=== PATIENT | female | born 1930 | race African-American/Black ===

== ENCOUNTER 2019-03-28 17:10 | Inpatient (IN) | payer MEDICARE, OTHER ==
[~2019-03-28] VITALS: Ht 152.4 cm; Wt 60.3 kg
[2019-03-28 18:39] LABS: BASOPHILS % 0.7 % (0.0-2.0); EOSINOPHILS % 1.2 % (0.0-5.0); HEMATOCRIT. 35.6 % (36.0-48.0); HEMOGLOBIN. 11.2 g/dL (12.0-16.0); LYMPHOCYTES % 25.2 % (20.0-50.0); MEAN CORPUSCULAR HEMOGLOBIN 27.7 pg (28.0-32.0); MEAN CORPUSCULAR VOLUME 87.9 fL (81.0-99.0); MEAN PLATELET VOLUME 8.4 fl (7.4-10.4); MONOCYTES % 8.3 % (2.0-8.0); NEUTROPHILS % 64.6 % (40.0-76.0); PLATELET 284 x1000/uL (130-400); RED BLOOD CELL COUNT 4.05 mill/uL (4.2-5.4); RED CELL DISTRIBUTION WIDTH 15.1 % (11.6-14.6)
[2019-03-28 18:44] LABS: CHLORIDE 110 mEq/L (98-107)
[2019-03-28] MEDS ORDERED: CLONIDINE 0.2MG TABLET PO ONE (20:00)
[2019-03-28] MEDS ORDERED: GUAIFENESIN 200MG/10ML SUGAR FREE UDC PO PRN (23:45)
[2019-03-28] MEDS ORDERED: ENOXAPARIN 40MG/0.4ML SYR SUBCUT SCH (23:45)
[2019-03-28] MEDS ORDERED: DIPHENHYDRAMINE 50MG/ML VIAL IV PRN (23:45)
[2019-03-28] MEDS ORDERED: ACETAMINOPHEN 325MG TABLET PO PRN (23:45)
[2019-03-28] MEDS ORDERED: ACETAMINOPHEN 650MG/20.3ML UDC GT PRN (23:45)
[2019-03-28] MEDS ORDERED: ACETAMINOPHEN 650MG SUPP PR PRN (23:45)
[2019-03-28] MEDS ORDERED: MAGNESIUM/ALUMINUM HYDROXIDE/SIMETHICONE 30ML UDC PO PRN (23:45)
[2019-03-28] MEDS ORDERED: DOCUSATE SODIUM 100MG CAPSULE PO PRN (23:45)
[2019-03-28] MEDS ORDERED: CLONIDINE 0.1MG TABLET PO PRN (23:45)
[2019-03-28] MEDS ORDERED: ONDANSETRON HCL 4MG/2ML INJ IV PRN (23:45)
[2019-03-29 08:00] VITALS: BP 204/76
[2019-03-29] MEDS: SODIUM CHLORIDE 0.9% INJ 3ML FLUSH IVF SCH ×3 (09:39→21:06)
[2019-03-29] MEDS: ENOXAPARIN 30MG/0.3ML SYR SUBCUT SCH (09:39)
[2019-03-29] MEDS: FUROSEMIDE 40MG/4ML VIAL IV SCH (09:39)
[2019-03-29 12:00] VITALS: BP 133/48
[2019-03-29 16:00] VITALS: BP 150/54
[2019-03-29 16:19] LABS: EOSINOPHILS % 1.9 % (0.0-5.0); HEMATOCRIT. 33.2 % (36.0-48.0); HEMOGLOBIN. 10.6 g/dL (12.0-16.0); LYMPHOCYTES % 33.9 % (20.0-50.0); MEAN CORPUSCULAR HEMOGLOBIN 27.5 pg (28.0-32.0); MEAN CORPUSCULAR VOLUME 85.7 fL (81.0-99.0); MEAN PLATELET VOLUME 8.8 fl (7.4-10.4); MONOCYTES % 7.5 % (2.0-8.0); NEUTROPHILS % 55.7 % (40.0-76.0); PLATELET 275 x1000/uL (130-400); RED BLOOD CELL COUNT 3.87 mill/uL (4.2-5.4); RED CELL DISTRIBUTION WIDTH 15.2 % (11.6-14.6)
[2019-03-29 16:33] LABS: CHLORIDE 107 mEq/L (98-107)
[2019-03-29 16:42] LABS: LDL CHOLESTEROL 104 mg/dL (5-100)
[2019-03-29 16:43] LABS: CREATINE KINASE 118 IU/L (26-192)
[2019-03-29 16:44] LABS: HDL CHOLESTEROL 74 mg/dL (40-59)
[2019-03-29 16:47] LABS: CREATINE KINASE MB FRACTION 6.2 ng/mL (0.5-3.6)
[2019-03-29 16:49] LABS: T4 FREE 1.09 ng/dL (0.76-1.46)
[2019-03-29] MEDS ORDERED: HALOPERIDOL 0.5MG TABLET PO PRN (17:15)
[2019-03-29] MEDS ORDERED: HALOPERIDOL 2MG TABLET PO PRN (17:47)
[2019-03-29 17:48] VITALS: BP 151/75
[2019-03-29 19:58] VITALS: BP 139/59
[2019-03-30] VITALS: BP 162/69
[2019-03-30 04:00] VITALS: BP 145/94
[2019-03-30] MEDS: SODIUM CHLORIDE 0.9% INJ 3ML FLUSH IVF SCH ×3 (06:34→21:06)
[2019-03-30 08:00] VITALS: BP 136/73
[2019-03-30] MEDS ORDERED: NA PHOS,M-B/NA PHOS,DI-BA ENEMA 118ML PR PRN (09:00)
[2019-03-30] MEDS: FUROSEMIDE 40MG/4ML VIAL IV SCH (09:07)
[2019-03-30] MEDS: ENOXAPARIN 30MG/0.3ML SYR SUBCUT SCH (09:08)
[2019-03-30 12:00] VITALS: BP 148/47
[2019-03-30 16:00] VITALS: BP 165/57
[2019-03-30 20:00] VITALS: BP 125/77
[2019-03-31] VITALS: BP 138/58
[2019-03-31 04:00] VITALS: BP 146/49
[2019-03-31] MEDS: SODIUM CHLORIDE 0.9% INJ 3ML FLUSH IVF SCH ×2 (05:03→21:19)
[2019-03-31 07:44] LABS: BASOPHILS % 0.4 % (0.0-2.0); EOSINOPHILS % 1.2 % (0.0-5.0); HEMATOCRIT. 27.6 % (36.0-48.0); HEMOGLOBIN. 9.1 g/dL (12.0-16.0); LYMPHOCYTES % 43.8 % (20.0-50.0); MEAN CORPUSCULAR HEMOGLOBIN 28.8 pg (28.0-32.0); MEAN CORPUSCULAR VOLUME 86.8 fL (81.0-99.0); MEAN PLATELET VOLUME 8.2 fl (7.4-10.4); MONOCYTES % 9.9 % (2.0-8.0); NEUTROPHILS % 44.7 % (40.0-76.0); PLATELET 225 x1000/uL (130-400); RED BLOOD CELL COUNT 3.18 mill/uL (4.2-5.4)
[2019-03-31 07:57] LABS: CHLORIDE 108 mEq/L (98-107)
[2019-03-31] MEDS: FUROSEMIDE 40MG/4ML VIAL IV SCH (08:40)
[2019-03-31] MEDS: ENOXAPARIN 30MG/0.3ML SYR SUBCUT SCH (08:41)
[2019-03-31 08:59] VITALS: BP 132/62
[2019-03-31 12:17] VITALS: BP 135/76
[2019-03-31 16:56] VITALS: BP 140/55
[2019-03-31 20:00] VITALS: BP 144/56
[2019-04-01] VITALS: BP 147/52
[2019-04-01 04:00] VITALS: BP 160/54
[2019-04-01] MEDS: SODIUM CHLORIDE 0.9% INJ 3ML FLUSH IVF SCH (05:19)
[2019-04-01] MEDS ORDERED: ENOXAPARIN 40MG/0.4ML SYR SUBCUT SCH (09:00)
[2019-04-01] MEDS ORDERED: HYDRALAZINE HCL 25MG TABLET PO SCH (14:00)
== END 2019-04-01 17:00 | DRG 291 ==
LOC: ER 17:10 → ENRESERV 03-29 07:14 → 6WST 03-29 08:30
PROVIDERS: ADMIT Family Medicine; ATTEND Family Medicine
DX: I11.0 Hypertensive heart disease with heart failure (principal); I50.31 Acute diastolic (congestive) heart failure; E44.0 Moderate protein-calorie malnutrition; R60.0 Localized edema; R06.02 Shortness of breath; E78.5 Hyperlipidemia, unspecified; G20 Parkinson's disease; F02.80 Dementia in other diseases classified elsewhere, unspecified severity, without behavioral disturbance, psychotic disturbance, mood disturbance, and anxiety; D64.9 Anemia, unspecified; R73.9 Hyperglycemia, unspecified; I16.0 Hypertensive urgency
CPT/HCPCS: 36415; 71045; 80061; 82550; 82553; 82962; 83036; 83880; 84439; 84443; 84484; 85379; 93005; 93306; 93970; 96374; 97110; 97162; 97166; 97530; 99285; J1650; J1940

== ENCOUNTER 2020-02-28 14:07 | Inpatient (IN) | payer MEDICARE, OTHER, MEDICAID ==
[~2020-02-28] VITALS: Ht 167.6 cm; Wt 59.0 kg
[2020-02-28] MEDS ORDERED: SODIUM CHLORIDE 0.9% 1,000 ML IV ONE (14:15)
[2020-02-28 16:09] LABS: HEMATOCRIT. 43.7 % (36.0-48.0); HEMOGLOBIN. 13.9 g/dL (12.0-16.0); MEAN CORPUSCULAR HEMOGLOBIN 27.8 pg (28.0-32.0); MEAN CORPUSCULAR VOLUME 87.6 fL (81.0-99.0); MEAN PLATELET VOLUME 8.2 fl (7.4-10.4); PLATELET 517 x1000/uL (130-400); RED BLOOD CELL COUNT 4.99 mill/uL (4.2-5.4); RED CELL DISTRIBUTION WIDTH 15.4 % (11.6-14.6)
[2020-02-28 16:27] LABS: CHLORIDE 119 mEq/L (98-107)
[2020-02-28 16:28] LABS: PLATELET ESTIMATE INCREASED
[2020-02-28] MEDS ORDERED: ONDANSETRON HCL 4MG/2ML INJ IV ONE (17:00)
[2020-02-28] MEDS ORDERED: CLONIDINE 0.2MG TABLET PO ONE (17:00)
[2020-02-28 17:33] LABS: CLARITY URINE CLOUDY (CLEAR); COLOR URINE YELLOW (YELLOW); KETONES URINE TRACE (NEGATIVE); LEUKOCYTE ESTERASE URINE TRACE (NEGATIVE); NITRITE URINE NEGATIVE (NEGATIVE); OCCULT BLOOD URINE 1+ (NEGATIVE); PROTEIN URINE 1+ (NEGATIVE); SPECIFIC GRAVITY URINE 1.018 (1.005-1.030); UROBILINOGEN URINE 0.2 E.U./dL (0.2-1.0)
[2020-02-28] MEDS ORDERED: LABETALOL 5MG/ML SYR 20 MG/4 ML SYRINGE IV ONE (17:45)
[2020-02-28] MEDS ORDERED: CEFTRIAXONE 1 G PREMIX 50 ML IV ONE (18:15)
[2020-02-28] MEDS ORDERED: GUAIFENESIN 200MG/10ML SUGAR FREE UDC PO PRN (21:30)
[2020-02-28] MEDS ORDERED: CEFTRIAXONE 1 G PREMIX 50 ML IV SCH (21:30)
[2020-02-28] MEDS ORDERED: MAGNESIUM/ALUMINUM HYDROXIDE/SIMETHICONE 30ML UDC PO PRN (21:30)
[2020-02-28] MEDS ORDERED: DEXTROSE 50% WATER 50ML SYRINGE IV PRN (21:45)
[2020-02-28] MEDS ORDERED: CEFEPIME 2,000 MG in DEXT 5% WATER 100 ML IV SCH (22:30)
[2020-02-29] VITALS (7 sets, daily range): BP systolic 108–177; BP diastolic 66–98
[2020-02-29] MEDS ORDERED: ASCO500C18 MT (01:12)
[2020-02-29] MEDS ORDERED: CLOP75TA4 MT (01:12)
[2020-02-29] MEDS ORDERED: MULT-379 MT (01:12)
[2020-02-29] MEDS ORDERED: DOCU-138 MT (01:12)
[2020-02-29] MEDS ORDERED: HYDR-4134 MT (01:12)
[2020-02-29] MEDS: CEFEPIME 1,000 MG in DEXTROSE 5% WATER 50 ML IV SCH (01:25)
[2020-02-29] MEDS: DEXTROSE 5% WATER 1,000 ML IV SCH ×3 (01:26→21:50)
[2020-02-29 05:24] LABS: CHLORIDE 123 mEq/L (98-107)
[2020-02-29 06:00] LABS: BASOPHILS % 0.4 % (0.0-2.0); EOSINOPHILS % 1.3 % (0.0-5.0); HEMOGLOBIN. 11.2 g/dL (12.0-16.0); LYMPHOCYTES % 21.4 % (20.0-50.0); MEAN CORPUSCULAR HEMOGLOBIN 28.3 pg (28.0-32.0); MEAN CORPUSCULAR VOLUME 86.2 fL (81.0-99.0); MEAN PLATELET VOLUME 8.1 fl (7.4-10.4); MONOCYTES % 6.5 % (2.0-8.0); NEUTROPHILS % 70.4 % (40.0-76.0); PLATELET 398 x1000/uL (130-400); RED BLOOD CELL COUNT 3.94 mill/uL (4.2-5.4); RED CELL DISTRIBUTION WIDTH 15.1 % (11.6-14.6)
[2020-02-29] MEDS: INSULIN LISPRO 100 UNITS/ML SUBCUT SCH ×4 (07:54→21:00)
[2020-02-29] MEDS: BLOOD SUGAR DIAGNOSTIC STRIP TEST SCH ×4 (07:54→21:50)
[2020-02-29] MEDS ORDERED: ENOXAPARIN 40MG/0.4ML SYR SUBCUT SCH (09:00)
[2020-02-29] MEDS: ENOXAPARIN 30MG/0.3ML SYR SUBCUT SCH (09:09)
[2020-02-29] MEDS ORDERED: POTASSIUM CHLORIDE INJ 40 MEQ in DEXT 5% WATER 500 ML IV NR (12:00)
[2020-02-29] MEDS: CLONIDINE 0.1MG TABLET PO PRN (18:17)
[2020-03-01] VITALS: BP 123/58
[2020-03-01] MEDS: CEFEPIME 1,000 MG in DEXTROSE 5% WATER 50 ML IV SCH (00:19)
[2020-03-01] MEDS: ACETAMINOPHEN 325MG TABLET PO PRN (00:19)
[2020-03-01 04:00] VITALS: BP 135/80
[2020-03-01] MEDS: BLOOD SUGAR DIAGNOSTIC STRIP TEST SCH ×4 (07:46→20:47)
[2020-03-01] MEDS: INSULIN LISPRO 100 UNITS/ML SUBCUT SCH ×4 (07:46→20:47)
[2020-03-01 08:00] VITALS: BP 157/110
[2020-03-01] MEDS: ENOXAPARIN 30MG/0.3ML SYR SUBCUT SCH (10:04)
[2020-03-01 12:00] VITALS: BP 147/98
[2020-03-01] MEDS: DEXTROSE 5% WATER 1,000 ML IV SCH (15:25)
[2020-03-01 16:28] LABS: BASOPHILS % 0.2 % (0.0-2.0); EOSINOPHILS % 1.7 % (0.0-5.0); HEMATOCRIT. 40.8 % (36.0-48.0); HEMOGLOBIN. 13.3 g/dL (12.0-16.0); LYMPHOCYTES % 8.4 % (20.0-50.0); MEAN CORPUSCULAR VOLUME 86.2 fL (81.0-99.0); MEAN PLATELET VOLUME 8.4 fl (7.4-10.4); MONOCYTES % 3.2 % (2.0-8.0); NEUTROPHILS % 86.5 % (40.0-76.0); PLATELET 364 x1000/uL (130-400); RED BLOOD CELL COUNT 4.74 mill/uL (4.2-5.4); RED CELL DISTRIBUTION WIDTH 15.1 % (11.6-14.6)
[2020-03-01] MEDS ORDERED: POTASSIUM CHLORIDE 20MEQ TABLET SR PO NR (16:30)
[2020-03-01 20:00] VITALS: BP 142/58
[2020-03-01 23:46] LABS: CHLORIDE 116 mEq/L (98-107)
[2020-03-02] VITALS: BP 116/93
[2020-03-02] MEDS: CEFEPIME 1,000 MG in DEXTROSE 5% WATER 50 ML IV SCH (01:06)
[2020-03-02 04:00] VITALS: BP 121/91
[2020-03-02] MEDS: DEXTROSE 5% WATER 1,000 ML IV SCH (04:47)
[2020-03-02] MEDS: BLOOD SUGAR DIAGNOSTIC STRIP TEST SCH ×4 (04:47→21:00)
[2020-03-02] MEDS: INSULIN LISPRO 100 UNITS/ML SUBCUT SCH ×4 (07:18→21:00)
[2020-03-02 07:28] LABS: HEMATOCRIT. 40.6 % (36.0-48.0); HEMOGLOBIN. 13.3 g/dL (12.0-16.0); MEAN CORPUSCULAR HEMOGLOBIN 28.4 pg (28.0-32.0); MEAN PLATELET VOLUME 8.7 fl (7.4-10.4); PLATELET 390 x1000/uL (130-400); RED BLOOD CELL COUNT 4.67 mill/uL (4.2-5.4); RED CELL DISTRIBUTION WIDTH 14.8 % (11.6-14.6)
[2020-03-02 07:38] LABS: CHLORIDE 114 mEq/L (98-107)
[2020-03-02 08:00] VITALS: BP_SYST 102; BP_SYST 103; BP_DIAS 46; BP_DIAS 77
[2020-03-02] MEDS: ENOXAPARIN 30MG/0.3ML SYR SUBCUT SCH (08:22)
[2020-03-02] MEDS ORDERED: MIRT15TA6 MT (11:38)
[2020-03-02 12:00] VITALS: BP 152/56
[2020-03-02 13:57] LABS: NUCLEATED RED BLOOD CELLS 1 /100 WBC; PLATELET ESTIMATE NORMAL
[2020-03-02 16:00] VITALS: BP 125/63
[2020-03-02 20:00] VITALS: BP 130/87
[2020-03-02] MEDS: IPRATROPIUM/ALBUTEROL 0.5-3(2.5)MG/3ML NEB HHN SCH (20:02)
[2020-03-02] MEDS: MIRTAZAPINE 15MG TABLET PO SCH (21:44)
[2020-03-03] MEDS: IPRATROPIUM/ALBUTEROL 0.5-3(2.5)MG/3ML NEB HHN SCH ×4 (01:37→20:41)
[2020-03-03] MEDS: CEFEPIME 1,000 MG in DEXTROSE 5% WATER 50 ML IV SCH (01:53)
[2020-03-03 06:47] LABS: HEMATOCRIT. 36.5 % (36.0-48.0); HEMOGLOBIN. 12.2 g/dL (12.0-16.0); MEAN CORPUSCULAR HEMOGLOBIN 28.8 pg (28.0-32.0); MEAN CORPUSCULAR VOLUME 86.1 fL (81.0-99.0); PLATELET 331 x1000/uL (130-400); RED BLOOD CELL COUNT 4.24 mill/uL (4.2-5.4); RED CELL DISTRIBUTION WIDTH 14.9 % (11.6-14.6)
[2020-03-03 07:01] LABS: CHLORIDE 114 mEq/L (98-107)
[2020-03-03] MEDS: BLOOD SUGAR DIAGNOSTIC STRIP TEST SCH ×4 (07:20→20:48)
[2020-03-03] MEDS: INSULIN LISPRO 100 UNITS/ML SUBCUT SCH ×4 (07:50→22:00)
[2020-03-03] MEDS: ENOXAPARIN 30MG/0.3ML SYR SUBCUT SCH (10:44)
[2020-03-03 12:33] LABS: PLATELET ESTIMATE NORMAL
[2020-03-03] MEDS: SODIUM CHLORIDE 45ML SPRAY NS SCH ×2 (18:30→23:58)
[2020-03-03] MEDS: SODIUM CHLORIDE 0.45% 1,000 ML IV SCH (18:30)
[2020-03-03] MEDS: MIRTAZAPINE 15MG TABLET PO SCH (20:48)
[2020-03-04] VITALS: BP 143/83
[2020-03-04] MEDS: IPRATROPIUM/ALBUTEROL 0.5-3(2.5)MG/3ML NEB HHN SCH (01:50)
[2020-03-04] MEDS: CEFEPIME 1,000 MG in DEXTROSE 5% WATER 50 ML IV SCH (03:27)
[2020-03-04 04:00] VITALS: BP 133/64
[2020-03-04] MEDS: SODIUM CHLORIDE 45ML SPRAY NS SCH ×3 (06:37→17:44)
[2020-03-04] MEDS: BLOOD SUGAR DIAGNOSTIC STRIP TEST SCH ×4 (06:37→21:00)
[2020-03-04] MEDS: INSULIN LISPRO 100 UNITS/ML SUBCUT SCH ×4 (07:50→21:00)
[2020-03-04 08:00] VITALS: BP 139/88
[2020-03-04] MEDS: ENOXAPARIN 30MG/0.3ML SYR SUBCUT SCH (09:00)
[2020-03-04] MEDS: SODIUM CHLORIDE 0.45% 1,000 ML IV SCH (10:10)
[2020-03-04] MEDS ORDERED: MIDAZOLAM HCL 5 MG/5 ML VIAL ONE (10:42)
[2020-03-04] MEDS ORDERED: FENTANYL CITRATE/PF 50MCG/ML 2ML VIAL ONE (10:42)
[2020-03-04] MEDS ORDERED: MIDAZOLAM HCL 5 MG/5 ML VIAL IV PRN (10:57)
[2020-03-04 12:35] VITALS: BP 109/74
[2020-03-04 16:00] VITALS: BP 126/64
[2020-03-04] MEDS ORDERED: IPRATROPIUM/ALBUTEROL 0.5-3(2.5)MG/3ML NEB HHN PRN (16:00)
[2020-03-04 16:07] LABS: INR 1.1; PROTHROMBIN TIME 11.5 sec (9.6-11.0)
[2020-03-04 16:10] LABS: CHLORIDE 115 mEq/L (98-107)
[2020-03-04 17:51] LABS: HEMATOCRIT. 37.1 % (36.0-48.0); HEMOGLOBIN. 12.1 g/dL (12.0-16.0); MEAN CORPUSCULAR HEMOGLOBIN 28.5 pg (28.0-32.0); MEAN CORPUSCULAR VOLUME 87.6 fL (81.0-99.0); MEAN PLATELET VOLUME 9.4 fl (7.4-10.4); PLATELET 321 x1000/uL (130-400); RED BLOOD CELL COUNT 4.23 mill/uL (4.2-5.4); RED CELL DISTRIBUTION WIDTH 15.5 % (11.6-14.6)
[2020-03-04 20:00] VITALS: BP 175/63
[2020-03-04 20:22] LABS: PLATELET ESTIMATE NORMAL
[2020-03-04] MEDS: MIRTAZAPINE 15MG TABLET PO SCH (22:47)
[2020-03-05] VITALS: BP 166/83
[2020-03-05] MEDS: CEFEPIME 1,000 MG in DEXTROSE 5% WATER 50 ML IV SCH (01:00)
[2020-03-05] MEDS: SODIUM CHLORIDE 0.45% 1,000 ML IV SCH ×2 (02:50→19:30)
[2020-03-05 04:00] VITALS: BP 151/59
[2020-03-05] MEDS: SODIUM CHLORIDE 45ML SPRAY NS SCH ×4 (06:05→17:40)
[2020-03-05] MEDS: INSULIN LISPRO 100 UNITS/ML SUBCUT SCH ×4 (07:41→20:07)
[2020-03-05] MEDS: BLOOD SUGAR DIAGNOSTIC STRIP TEST SCH ×4 (07:41→20:07)
[2020-03-05 08:00] VITALS: BP 148/75
[2020-03-05] MEDS: ENOXAPARIN 30MG/0.3ML SYR SUBCUT SCH (09:08)
[2020-03-05 12:00] VITALS: BP 133/80
[2020-03-05 16:00] VITALS: BP 152/94
[2020-03-05 20:00] VITALS: BP 126/50
[2020-03-05] MEDS: MIRTAZAPINE 15MG TABLET PO SCH (21:35)
[2020-03-06] VITALS: BP_SYST 102; BP_SYST 134; BP_DIAS 52; BP_DIAS 78
[2020-03-06] MEDS: SODIUM CHLORIDE 45ML SPRAY NS SCH ×4 (01:07→17:06)
[2020-03-06 04:00] VITALS: BP 147/68
[2020-03-06] MEDS: BLOOD SUGAR DIAGNOSTIC STRIP TEST SCH ×4 (06:31→21:00)
[2020-03-06 08:00] VITALS: BP 111/34
[2020-03-06] MEDS: ENOXAPARIN 30MG/0.3ML SYR SUBCUT SCH (09:12)
[2020-03-06] MEDS: INSULIN LISPRO 100 UNITS/ML SUBCUT SCH ×4 (09:21→21:00)
[2020-03-06 12:00] VITALS: BP 94/49
[2020-03-06] MEDS: SODIUM CHLORIDE 0.45% 1,000 ML IV SCH (12:02)
[2020-03-06] MEDS: METOCLOPRAMIDE HCL 10MG/2ML VIAL IV SCH ×4 (14:00→21:46)
[2020-03-06 16:00] VITALS: BP 103/66
[2020-03-06 20:00] VITALS: BP 160/63
[2020-03-06] MEDS: FAMOTIDINE 20MG TABLET PO SCH (21:46)
[2020-03-06] MEDS: MIRTAZAPINE 15MG TABLET PO SCH (21:46)
[2020-03-07] VITALS: BP 146/66
[2020-03-07] MEDS: SODIUM CHLORIDE 45ML SPRAY NS SCH ×4 (01:19→18:00)
[2020-03-07] MEDS: METOCLOPRAMIDE HCL 10MG/2ML VIAL IV SCH ×4 (03:38→20:13)
[2020-03-07 04:00] VITALS: BP 143/69
[2020-03-07] MEDS: BLOOD SUGAR DIAGNOSTIC STRIP TEST SCH ×4 (07:20→20:14)
[2020-03-07] MEDS: INSULIN LISPRO 100 UNITS/ML SUBCUT SCH ×4 (07:50→20:27)
[2020-03-07 08:06] VITALS: BP 169/71
[2020-03-07] MEDS: ENOXAPARIN 30MG/0.3ML SYR SUBCUT SCH (09:09)
[2020-03-07 12:05] VITALS: BP 162/61
[2020-03-07] MEDS: SODIUM CHLORIDE 0.45% 1,000 ML IV SCH ×2 (13:33→20:14)
[2020-03-07 16:47] VITALS: BP 125/62
[2020-03-07] MEDS ORDERED: LEVETIRACETAM 500 MG in SODIUM CHLORIDE 0.9% 100 ML IV SCH (17:30)
[2020-03-07] MEDS: LEVETIRACETAM 500MG PREMIX 100 ML IV SCH (20:13)
[2020-03-07] MEDS: MIRTAZAPINE 15MG TABLET PO SCH (20:13)
[2020-03-07] MEDS: FAMOTIDINE 20MG TABLET PO SCH (20:13)
[2020-03-07 20:19] VITALS: BP 127/33
[2020-03-07 21:39] LABS: HEMATOCRIT. 31.3 % (36.0-48.0); MEAN CORPUSCULAR HEMOGLOBIN 27.7 pg (28.0-32.0); MEAN CORPUSCULAR VOLUME 86.9 fL (81.0-99.0); MEAN PLATELET VOLUME 9.3 fl (7.4-10.4); PLATELET 192 x1000/uL (130-400); RED CELL DISTRIBUTION WIDTH 15.9 % (11.6-14.6)
[2020-03-07 21:43] LABS: CHLORIDE 119 mEq/L (98-107)
[2020-03-07 22:13] LABS: PLATELET ESTIMATE NORMAL
[2020-03-08 00:25] VITALS: BP 136/63
[2020-03-08] MEDS: SODIUM CHLORIDE 45ML SPRAY NS SCH ×3 (00:56→12:31)
[2020-03-08 01:18] LABS: HEMATOCRIT. 33.9 % (36.0-48.0); HEMOGLOBIN. 10.9 g/dL (12.0-16.0); MEAN CORPUSCULAR VOLUME 86.9 fL (81.0-99.0); RED CELL DISTRIBUTION WIDTH 15.7 % (11.6-14.6)
[2020-03-08 01:23] LABS: CHLORIDE 119 mEq/L (98-107)
[2020-03-08] MEDS: METOCLOPRAMIDE HCL 10MG/2ML VIAL IV SCH ×4 (02:06→20:49)
[2020-03-08 04:00] VITALS: BP 109/53
[2020-03-08] MEDS: ACETAMINOPHEN 325MG TABLET PO PRN (04:54)
[2020-03-08 05:40] LABS: MEAN PLATELET VOLUME 9.7 fl (7.4-10.4); PLATELET 191 x1000/uL (130-400)
[2020-03-08] MEDS: BLOOD SUGAR DIAGNOSTIC STRIP TEST SCH ×4 (06:05→21:00)
[2020-03-08 07:08] LABS: ATYPICAL LYMPHOCYTES 2; NUCLEATED RED BLOOD CELLS 8 /100 WBC; PLATELET ESTIMATE NORMAL
[2020-03-08 08:00] VITALS: BP 128/53
[2020-03-08] MEDS: INSULIN LISPRO 100 UNITS/ML SUBCUT SCH ×4 (08:47→21:00)
[2020-03-08] MEDS: LEVETIRACETAM 500MG PREMIX 100 ML IV SCH ×2 (08:48→20:49)
[2020-03-08] MEDS: ENOXAPARIN 30MG/0.3ML SYR SUBCUT SCH (08:49)
[2020-03-08 12:00] VITALS: BP 128/77
[2020-03-08] MEDS: SODIUM CHLORIDE 0.45% 1,000 ML IV SCH (14:54)
[2020-03-08 16:00] VITALS: BP 131/53
[2020-03-08 20:00] VITALS: BP_SYST 142
[2020-03-08] MEDS: MIRTAZAPINE 15MG TABLET PO SCH (20:49)
[2020-03-08] MEDS: FAMOTIDINE 20MG TABLET PO SCH (20:50)
[2020-03-09] VITALS: BP 103/89
[2020-03-09] MEDS: METOCLOPRAMIDE HCL 10MG/2ML VIAL IV SCH ×4 (03:54→21:37)
[2020-03-09 04:00] VITALS: BP 168/57
[2020-03-09] MEDS: SODIUM CHLORIDE 0.45% 1,000 ML IV SCH ×2 (05:50→22:20)
[2020-03-09] MEDS: CLONIDINE 0.1MG TABLET PO PRN (05:51)
[2020-03-09] MEDS: BLOOD SUGAR DIAGNOSTIC STRIP TEST SCH ×3 (07:22→21:00)
[2020-03-09] MEDS: INSULIN LISPRO 100 UNITS/ML SUBCUT SCH ×3 (07:23→21:00)
[2020-03-09 08:00] VITALS: BP 148/53
[2020-03-09] MEDS: ENOXAPARIN 30MG/0.3ML SYR SUBCUT SCH (10:24)
[2020-03-09] MEDS: LEVETIRACETAM 500MG PREMIX 100 ML IV SCH ×2 (10:24→22:13)
[2020-03-09 12:00] VITALS: BP 142/62
[2020-03-09 16:00] VITALS: BP 155/68
[2020-03-09 17:56] LABS: CHLORIDE 120 mEq/L (98-107)
[2020-03-09 20:00] VITALS: BP 168/58
[2020-03-09] MEDS: FAMOTIDINE 20MG TABLET PO SCH (21:36)
[2020-03-09] MEDS: MIRTAZAPINE 15MG TABLET PO SCH (22:13)
[2020-03-10 00:09] VITALS: BP 156/60
[2020-03-10] MEDS: METOCLOPRAMIDE HCL 10MG/2ML VIAL IV SCH ×4 (03:03→20:24)
[2020-03-10 04:43] VITALS: BP 159/77
[2020-03-10] MEDS: INSULIN LISPRO 100 UNITS/ML SUBCUT SCH ×4 (06:44→21:00)
[2020-03-10] MEDS: BLOOD SUGAR DIAGNOSTIC STRIP TEST SCH ×4 (06:44→21:06)
[2020-03-10 08:00] VITALS: BP 177/47
[2020-03-10] MEDS: ENOXAPARIN 30MG/0.3ML SYR SUBCUT SCH (09:01)
[2020-03-10] MEDS: LEVETIRACETAM 500MG PREMIX 100 ML IV SCH ×2 (09:01→20:25)
[2020-03-10 12:00] VITALS: BP 152/77
[2020-03-10 16:00] VITALS: BP 146/84
[2020-03-10] MEDS: SODIUM CHLORIDE 0.45% 1,000 ML IV SCH (17:36)
[2020-03-10 20:00] VITALS: BP 150/80
[2020-03-10] MEDS: FAMOTIDINE 20MG TABLET PO SCH (20:24)
[2020-03-10] MEDS: MIRTAZAPINE 15MG TABLET PO SCH (20:24)
[2020-03-11] VITALS: BP 145/85
[2020-03-11] MEDS: METOCLOPRAMIDE HCL 10MG/2ML VIAL IV SCH ×3 (02:41→15:00)
[2020-03-11 04:00] VITALS: BP 152/75
[2020-03-11] MEDS: BLOOD SUGAR DIAGNOSTIC STRIP TEST SCH ×2 (06:09→11:40)
[2020-03-11] MEDS: INSULIN LISPRO 100 UNITS/ML SUBCUT SCH ×2 (06:09→12:10)
[2020-03-11 08:00] VITALS: BP 118/79
[2020-03-11] MEDS: SODIUM CHLORIDE 0.45% 1,000 ML IV SCH (08:36)
[2020-03-11] MEDS: LEVETIRACETAM 500MG PREMIX 100 ML IV SCH (08:36)
[2020-03-11] MEDS: ENOXAPARIN 30MG/0.3ML SYR SUBCUT SCH (09:22)
[2020-03-11] MEDS ORDERED: KEPP500 MT (11:37)
[2020-03-11 12:00] VITALS: BP 118/81
[2020-03-11 14:27] VITALS: BP 118/81
[2020-03-11 16:00] VITALS: BP 155/74
== END 2020-03-11 16:30 | DRG 871 ==
LOC: ER 14:18 → 7WST 19:28 → ENRESERV 22:45 → 6WST 03-01 20:11 → 7EST 03-09 13:40
PROVIDERS: ADMIT Family Medicine; ATTEND Family Medicine
PROC: 0DH64UZ Insertion of Feeding Device into Stomach, Percutaneous Endoscopic Approach (ICD-10-PCS; principal; 2020-03-04)
DX: A41.89 Other specified sepsis (principal); U07.1 COVID-19; E43 Unspecified severe protein-calorie malnutrition; J12.89 Other viral pneumonia; J96.00 Acute respiratory failure, unspecified whether with hypoxia or hypercapnia; N17.9 Acute kidney failure, unspecified; N39.0 Urinary tract infection, site not specified; I50.32 Chronic diastolic (congestive) heart failure; E87.0 Hyperosmolality and hypernatremia; E87.1 Hypo-osmolality and hyponatremia; E86.0 Dehydration; I11.0 Hypertensive heart disease with heart failure; E78.5 Hyperlipidemia, unspecified; E87.6 Hypokalemia; F02.80 Dementia in other diseases classified elsewhere, unspecified severity, without behavioral disturbance, psychotic disturbance, mood disturbance, and anxiety; G20 Parkinson's disease; I25.10 Atherosclerotic heart disease of native coronary artery without angina pectoris; R62.7 Adult failure to thrive; K44.9 Diaphragmatic hernia without obstruction or gangrene; K29.70 Gastritis, unspecified, without bleeding; Z68.21 Body mass index [BMI] 21.0-21.9, adult
CPT/HCPCS: 36415; 71045; 74018; 80048; 80053; 81003; 82962; 83036; 83605; 83880; 84484; 85025; 87635; 92610; 93005; 96374; 99291; J0692; J0696; J1650; J1815; J1953; J2250; J2405; J2765; J3010; J3480; J3490; J7030; J7060; U0003-CS

== ENCOUNTER 2020-03-19 08:45 | Inpatient (IN) | payer MEDICARE, OTHER, MEDICAID ==
[~2020-03-19] VITALS: Ht 172.7 cm; Wt 64.4 kg
[~2020-03-19 08:45] MED LIST: ASCO500C18 MT; CLOP75TA4 MT; DOCU-138 MT; HYDR-4134 MT; KEPP500 MT; MULT-379 MT
[2020-03-19 11:03] LABS: HEMATOCRIT. 35.5 % (36.0-48.0); HEMOGLOBIN. 11.3 g/dL (12.0-16.0); MEAN CORPUSCULAR HEMOGLOBIN 28.3 pg (28.0-32.0); MEAN CORPUSCULAR VOLUME 88.9 fL (81.0-99.0); MEAN PLATELET VOLUME 9.8 fl (7.4-10.4); PLATELET 144 x1000/uL (130-400); RED BLOOD CELL COUNT 3.99 mill/uL (4.2-5.4); RED CELL DISTRIBUTION WIDTH 17.6 % (11.6-14.6)
[2020-03-19 11:09] LABS: CHLORIDE 112 mEq/L (98-107)
[2020-03-19 11:18] LABS: CREATINE KINASE 41 IU/L (26-192)
[2020-03-19 11:19] LABS: D-DIMER 13.71 mg/L FEU (<0.50); INR 0.9; PROTHROMBIN TIME 9.7 sec (9.6-11.0)
[2020-03-19 11:32] LABS: CLARITY URINE CLEAR (CLEAR); COLOR URINE YELLOW (YELLOW); KETONES URINE NEGATIVE (NEGATIVE); LEUKOCYTE ESTERASE URINE 1+ (NEGATIVE); NITRITE URINE NEGATIVE (NEGATIVE); OCCULT BLOOD URINE NEGATIVE (NEGATIVE); PH URINE 7.5 (4.5-8.0); PROTEIN URINE 1+ (NEGATIVE); SPECIFIC GRAVITY URINE 1.012 (1.005-1.030); UROBILINOGEN URINE 0.2 E.U./dL (0.2-1.0)
[2020-03-19 12:07] LABS: NUCLEATED RED BLOOD CELLS 1 /100 WBC
[2020-03-19 12:08] LABS: PLATELET ESTIMATE NORMAL
[2020-03-19] MEDS ORDERED: ACETAMINOPHEN 650MG SUPP PR PRN ×2 (13:15)
[2020-03-19] MEDS ORDERED: DOCUSATE SODIUM 100MG CAPSULE PO PRN (13:15)
[2020-03-19] MEDS ORDERED: GUAIFENESIN 200MG/10ML SUGAR FREE UDC PO PRN (13:15)
[2020-03-19] MEDS ORDERED: ACETAMINOPHEN 650MG/20.3ML UDC GT PRN ×2 (13:15)
[2020-03-19] MEDS ORDERED: CEFTRIAXONE 1 G PREMIX 50 ML IV SCH (13:30)
[2020-03-19] MEDS: DEXT 5%/0.45% NACL 1000ML 1,000 ML IV SCH (13:32)
[2020-03-19] MEDS: SODIUM CHLORIDE 0.9% INJ 3ML FLUSH IVF SCH (15:00)
[2020-03-20] VITALS (7 sets, daily range): BP systolic 92–151; BP diastolic 31–78
[2020-03-20] MEDS: DEXT 5%/0.45% NACL 1000ML 1,000 ML IV SCH (03:53)
[2020-03-20] MEDS: SODIUM CHLORIDE 0.9% INJ 3ML FLUSH IVF SCH ×3 (03:54→21:50)
[2020-03-20] MEDS: PIPERACILLIN/TAZOBACTAM 3.375 G in DEXT 5% WATER 100 ML IV SCH ×3 (12:00→23:37)
[2020-03-20] MEDS ORDERED: CEFTRIAXONE 1 G PREMIX 50 ML IV SCH (13:00)
[2020-03-20] MEDS ORDERED: PIPERACILLIN/TAZOBACTAM 3.375 G/VIAL IV SCH (14:00)
[2020-03-21] VITALS: BP 136/62
[2020-03-21 04:00] VITALS: BP 137/70
[2020-03-21] MEDS: SODIUM CHLORIDE 0.9% INJ 3ML FLUSH IVF SCH ×3 (05:51→22:03)
[2020-03-21] MEDS: PIPERACILLIN/TAZOBACTAM 3.375 G in DEXT 5% WATER 100 ML IV SCH ×3 (05:51→17:36)
[2020-03-21 08:00] VITALS: BP 106/35
[2020-03-21 12:00] VITALS: BP 106/38
[2020-03-21] MEDS ORDERED: SODIUM CHLORIDE 0.9% 250 ML IV ONE (15:00)
[2020-03-21 16:12] VITALS: BP 101/34
[2020-03-21 18:05] LABS: CHLORIDE 120 mEq/L (98-107)
[2020-03-21] MEDS ORDERED: DEXTROSE 50% WATER 50ML SYRINGE IV PRN (20:00)
[2020-03-21 20:44] VITALS: BP 98/23
[2020-03-21] MEDS: BLOOD SUGAR DIAGNOSTIC STRIP TEST SCH (21:00)
[2020-03-21] MEDS: INSULIN LISPRO 100 UNITS/ML SUBCUT SCH (21:00)
[2020-03-21] MEDS ORDERED: ALBUMIN HUMAN 25GM/100ML (25%) IV NR (22:00)
[2020-03-21] MEDS ORDERED: SODIUM BICARBONATE 50 MEQ in DEXTROSE 5% WATER 1,000 ML IV SCH (22:30)
[2020-03-21] MEDS: ALBUMIN HUMAN 25GM/100ML (25%) IV NR (23:25)
[2020-03-22] VITALS (7 sets, daily range): BP systolic 107–146; BP diastolic 25–98
[2020-03-22] MEDS: PIPERACILLIN/TAZOBACTAM 3.375 G in DEXT 5% WATER 100 ML IV SCH ×4 (00:43→17:12)
[2020-03-22 01:21] LABS: HEMATOCRIT. 28.1 % (36.0-48.0); HEMOGLOBIN. 9.1 g/dL (12.0-16.0); MEAN CORPUSCULAR HEMOGLOBIN 29.1 pg (28.0-32.0); MEAN CORPUSCULAR VOLUME 89.9 fL (81.0-99.0); MEAN PLATELET VOLUME 9.6 fl (7.4-10.4); PLATELET 52 x1000/uL (130-400); RED BLOOD CELL COUNT 3.13 mill/uL (4.2-5.4); RED CELL DISTRIBUTION WIDTH 18.3 % (11.6-14.6)
[2020-03-22 01:48] LABS: NUCLEATED RED BLOOD CELLS 1 /100 WBC
[2020-03-22] MEDS: ALBUMIN HUMAN 25GM/100ML (25%) IV NR (01:48)
[2020-03-22 01:50] LABS: PLATELET ESTIMATE DECREASED
[2020-03-22] MEDS: SODIUM CHLORIDE 0.9% INJ 3ML FLUSH IVF SCH ×3 (05:42→21:39)
[2020-03-22] MEDS: BLOOD SUGAR DIAGNOSTIC STRIP TEST SCH ×4 (06:49→20:34)
[2020-03-22 08:10] LABS: CHLORIDE 121 mEq/L (98-107)
[2020-03-22] MEDS: INSULIN LISPRO 100 UNITS/ML SUBCUT SCH ×4 (08:10→21:41)
[2020-03-22 08:25] LABS: HEMOGLOBIN. 8.9 g/dL (12.0-16.0); MEAN CORPUSCULAR HEMOGLOBIN 29.1 pg (28.0-32.0); MEAN CORPUSCULAR VOLUME 88.5 fL (81.0-99.0); MEAN PLATELET VOLUME 9.8 fl (7.4-10.4); RED BLOOD CELL COUNT 3.05 mill/uL (4.2-5.4); RED CELL DISTRIBUTION WIDTH 18.2 % (11.6-14.6)
[2020-03-22 08:35] LABS: PLATELET 50 x1000/uL (130-400)
[2020-03-22] MEDS ORDERED: FUROSEMIDE 20MG/2ML VIAL IVP NR (14:15)
[2020-03-22 15:55] LABS: BG BASE EXCESS -11.1 mmol/L (-2.0-2.0); BG CARBOXYHEMOGLOBIN 0.3 % (0.5-1.5); BG DEOXYHEMOGLOBIN 0.8 % (0.0-5.0); BG HCO3 ACT 14.9 mmol/L (22.0-26.0); BG METHEMOGLOBIN 0.3 % (0.0-1.5); BG OXYGEN SATURATION 99.2 % (92.0-98.5); BG OXYHEMOGLOBIN 98.6 % (94.0-97.0); BG PCO2 33.7 mmHg (35.0-45.0); BG PH 7.263 (7.350-7.450); BG PO2 254.1 mmHg (75.0-100.0); BG SAMPLE SITE RIGHT RADIAL; BG TOTAL HEMOGLOBIN 9.3 g/dL (12.0-18.0); BG VENT MODE NASAL CANNULA
[2020-03-22 16:16] LABS: PLATELET ESTIMATE DECREASED
[2020-03-22] MEDS: METHYLPREDNISOLONE SOD SUCC 40 MG/ML VIAL IV SCH (16:50)
[2020-03-22] MEDS: LEVOFLOXACIN 750MG PREMIX 150 ML IV SCH (20:04)
[2020-03-22] MEDS: THEOPHYLLINE ANHYDROUS 80 MG/15 ML 120ML PO SCH (21:39)
[2020-03-23] VITALS: BP 67/37
[2020-03-23] MEDS: PIPERACILLIN/TAZOBACTAM 3.375 G in DEXT 5% WATER 100 ML IV SCH ×4 (00:57→17:53)
[2020-03-23 04:00] VITALS: BP 88/42
[2020-03-23] MEDS: SODIUM CHLORIDE 0.9% INJ 3ML FLUSH IVF SCH ×3 (06:31→22:03)
[2020-03-23] MEDS: THEOPHYLLINE ANHYDROUS 80 MG/15 ML 120ML PO SCH ×3 (06:31→22:02)
[2020-03-23] MEDS: METHYLPREDNISOLONE SOD SUCC 40 MG/ML VIAL IV SCH (06:31)
[2020-03-23] MEDS: INSULIN LISPRO 100 UNITS/ML SUBCUT SCH ×4 (06:34→22:32)
[2020-03-23] MEDS: BLOOD SUGAR DIAGNOSTIC STRIP TEST SCH ×4 (06:34→21:00)
[2020-03-23 08:00] VITALS: BP 119/56
[2020-03-23 12:00] VITALS: BP 127/53
[2020-03-23 16:00] VITALS: BP 130/47
[2020-03-23] MEDS ORDERED: INSULIN LISPRO 100 UNITS/ML SUBCUT NR (17:30)
[2020-03-23 20:00] VITALS: BP 123/41
[2020-03-23] MEDS ORDERED: INSULIN GLARGINE UD 100 UNITS/ML SYR SUBCUT SCH ×2 (22:00)
[2020-03-23] MEDS ORDERED: INSULIN LISPRO 100 UNITS/ML SUBCUT ONE (23:15)
[2020-03-24] VITALS: BP 110/57
[2020-03-24 04:00] VITALS: BP 125/42
[2020-03-24] MEDS: SODIUM CHLORIDE 0.9% INJ 3ML FLUSH IVF SCH ×3 (05:28→19:59)
[2020-03-24] MEDS: THEOPHYLLINE ANHYDROUS 80 MG/15 ML 120ML PO SCH ×3 (05:28→21:05)
[2020-03-24] MEDS ORDERED: INSULIN LISPRO 100 UNITS/ML SUBCUT SCH (06:30)
[2020-03-24] MEDS: BLOOD SUGAR DIAGNOSTIC STRIP TEST SCH ×4 (07:00→20:32)
[2020-03-24 08:00] VITALS: BP 100/54
[2020-03-24] MEDS: METHYLPREDNISOLONE SOD SUCC 40 MG/ML VIAL IV SCH (08:50)
[2020-03-24] MEDS ORDERED: INSULIN GLARGINE UD 100 UNITS/ML SYR SUBCUT SCH ×2 (10:00→22:00)
[2020-03-24 10:59] LABS: HEMATOCRIT. 28.9 % (36.0-48.0); HEMOGLOBIN. 9.1 g/dL (12.0-16.0); MEAN PLATELET VOLUME 10.5 fl (7.4-10.4); RED BLOOD CELL COUNT 3.14 mill/uL (4.2-5.4); RED CELL DISTRIBUTION WIDTH 19.1 % (11.6-14.6)
[2020-03-24 11:02] LABS: CHLORIDE 121 mEq/L (98-107)
[2020-03-24 11:24] LABS: PLATELET 35 x1000/uL (130-400); PLATELET ESTIMATE MARKEDLY DECREASED
[2020-03-24] MEDS ORDERED: INSULIN LISPRO 100 UNITS/ML SUBCUT NR (11:30)
[2020-03-24] MEDS: INSULIN LISPRO 100 UNITS/ML SUBCUT SCH ×4 (11:35→21:00)
[2020-03-24 12:00] VITALS: BP 138/63
[2020-03-24 16:00] VITALS: BP 113/49
[2020-03-24] MEDS: LEVOFLOXACIN 750MG PREMIX 150 ML IV SCH (19:59)
[2020-03-24 20:00] VITALS: BP 101/43
[2020-03-24] MEDS ORDERED: POTASSIUM CHLORIDE 20MEQ TABLET SR PO NR (20:30)
[2020-03-24] MEDS ORDERED: SODIUM BICARBONATE 8.4% 1 MEQ/ML 50ML SYR IV ONE (22:30)
[2020-03-24] MEDS: CITRIC ACID/SODIUM CITRATE SOLN 15ML UDC PO SCH (23:02)
[2020-03-25] VITALS: BP 92/37
[2020-03-25 04:00] VITALS: BP 100/47
[2020-03-25] MEDS: BLOOD SUGAR DIAGNOSTIC STRIP TEST SCH ×2 (06:01→13:13)
[2020-03-25] MEDS: THEOPHYLLINE ANHYDROUS 80 MG/15 ML 120ML PO SCH ×2 (06:01→13:33)
[2020-03-25] MEDS: INSULIN LISPRO 100 UNITS/ML SUBCUT SCH ×2 (06:01→13:10)
[2020-03-25] MEDS: SODIUM CHLORIDE 0.9% INJ 3ML FLUSH IVF SCH ×2 (06:01→13:31)
[2020-03-25 08:00] VITALS: BP 103/47
[2020-03-25] MEDS: CITRIC ACID/SODIUM CITRATE SOLN 15ML UDC PO SCH ×3 (08:06→17:55)
[2020-03-25] MEDS: METHYLPREDNISOLONE SOD SUCC 40 MG/ML VIAL IV SCH (08:06)
[2020-03-25] MEDS ORDERED: INSULIN GLARGINE UD 100 UNITS/ML SYR SUBCUT SCH ×2 (10:00→22:00)
[2020-03-25 12:00] VITALS: BP 102/49
[2020-03-25 16:55] LABS: CHLORIDE 125 mEq/L (98-107)
[2020-03-25 16:56] LABS: HEMATOCRIT. 30.8 % (36.0-48.0); HEMOGLOBIN. 9.9 g/dL (12.0-16.0); MEAN CORPUSCULAR HEMOGLOBIN 28.8 pg (28.0-32.0); MEAN CORPUSCULAR VOLUME 89.3 fL (81.0-99.0); MEAN PLATELET VOLUME 9.9 fl (7.4-10.4); RED BLOOD CELL COUNT 3.44 mill/uL (4.2-5.4); RED CELL DISTRIBUTION WIDTH 19.1 % (11.6-14.6)
[2020-03-25 17:16] VITALS: BP 146/65
[2020-03-25 17:19] LABS: PLATELET 37 x1000/uL (130-400)
[2020-03-25] MEDS ORDERED: THEOL PO (17:25)
[2020-03-25] MEDS ORDERED: P20 GT (17:25)
[2020-03-25] MEDS ORDERED: CITR473S PO (17:25)
[2020-03-25] MEDS ORDERED: LANTUSUD SUBCUT (17:25)
[2020-03-25] MEDS ORDERED: INSLIS SUBCUT (17:25)
[2020-03-25] MEDS ORDERED: DEXTROSE 5% WATER 1,000 ML IV SCH (18:00)
[2020-03-25 19:36] LABS: NUCLEATED RED BLOOD CELLS 5 /100 WBC
[2020-03-25 19:40] LABS: PLATELET ESTIMATE MARKEDLY DECREASED
[2020-03-26] MEDS ORDERED: PREDNISONE 20MG TABLET GT SCH (09:00)
== END 2020-03-25 18:15 | DRG 871 ==
LOC: ER 08:45 → 7WST 09:39 → ENRESERV 23:02 → 7WST 03-24 05:30
PROVIDERS: ADMIT Family Medicine; ATTEND Family Medicine
DX: A41.89 Other specified sepsis (principal); U07.1 COVID-19; G93.41 Metabolic encephalopathy; J12.89 Other viral pneumonia; I50.33 Acute on chronic diastolic (congestive) heart failure; J96.00 Acute respiratory failure, unspecified whether with hypoxia or hypercapnia; E87.0 Hyperosmolality and hypernatremia; E87.2 Acidosis; R13.10 Dysphagia, unspecified; F02.80 Dementia in other diseases classified elsewhere, unspecified severity, without behavioral disturbance, psychotic disturbance, mood disturbance, and anxiety; Z93.1 Gastrostomy status; E78.5 Hyperlipidemia, unspecified; I11.0 Hypertensive heart disease with heart failure; G20 Parkinson's disease; I48.91 Unspecified atrial fibrillation; D64.9 Anemia, unspecified; Z66 Do not resuscitate; R65.20 Severe sepsis without septic shock; E87.8 Other disorders of electrolyte and fluid balance, not elsewhere classified; R62.7 Adult failure to thrive; D69.6 Thrombocytopenia, unspecified; R74.0 Nonspecific elevation of levels of transaminase and lactic acid dehydrogenase [LDH]; R68.0 Hypothermia, not associated with low environmental temperature; E11.65 Type 2 diabetes mellitus with hyperglycemia; Z74.01 Bed confinement status; Z68.21 Body mass index [BMI] 21.0-21.9, adult
CPT/HCPCS: 36415; 36600; 71045; 76937; 80048; 80053; 80076; 80202; 81003; 82375; 82550; 82728; 82805; 82962; 83036; 83605; 83615; 83880; 84145; 84484; 85014; 85018; 85025; 85027; 85379; 85384; 86850; 86900; 86920; 87077; 87106; 87186; 87804; 93005; 96365; 99285; 99291; C1725; C9113; J0692; J0696; J1815; J1940; J1956; J2060; J2248; J2270; J2543; J2920; J3370; J3490; J7040; J7050; J7060; J7070; P9016; P9047; U0003

== ENCOUNTER 2020-03-25 20:24 | Inpatient (IN) | payer MEDICARE, OTHER, MEDICAID ==
[~2020-03-25] VITALS: Ht 170.2 cm; Wt 87.1 kg
[~2020-03-25 20:24] MED LIST changes: +CITR473S PO; +INSLIS SUBCUT; +LANTUSUD SUBCUT; +P20 GT; +THEOL PO
[2020-03-25] MEDS ORDERED: SODIUM CHLORIDE 0.9% 500 ML IV ONE (20:45)
[2020-03-25 21:56] LABS: BASOPHILS % 0.4 % (0.0-2.0); EOSINOPHILS % 0.3 % (0.0-5.0); HEMATOCRIT. 30.5 % (36.0-48.0); HEMOGLOBIN. 9.5 g/dL (12.0-16.0); LYMPHOCYTES % 9.7 % (20.0-50.0); MEAN CORPUSCULAR HEMOGLOBIN 27.8 pg (28.0-32.0); MEAN CORPUSCULAR VOLUME 89.1 fL (81.0-99.0); MEAN PLATELET VOLUME 11.1 fl (7.4-10.4); NEUTROPHILS % 87.6 % (40.0-76.0); RED BLOOD CELL COUNT 3.43 mill/uL (4.2-5.4); RED CELL DISTRIBUTION WIDTH 19.1 % (11.6-14.6)
[2020-03-25 21:57] LABS: CLARITY URINE TURBID (CLEAR); COLOR URINE DARK YELLOW (YELLOW); KETONES URINE NEGATIVE (NEGATIVE); LEUKOCYTE ESTERASE URINE 3+ (NEGATIVE); NITRITE URINE NEGATIVE (NEGATIVE); OCCULT BLOOD URINE 3+ (NEGATIVE); PROTEIN URINE 2+ (NEGATIVE); SPECIFIC GRAVITY URINE 1.024 (1.005-1.030); UROBILINOGEN URINE 0.2 E.U./dL (0.2-1.0)
[2020-03-25 21:58] LABS: CHLORIDE 128 mEq/L (98-107)
[2020-03-25 21:59] LABS: INR 1.1; PROTHROMBIN TIME 11.7 sec (9.6-11.0)
[2020-03-25 22:13] LABS: PLATELET 38 x1000/uL (130-400)
[2020-03-25] MEDS ORDERED: PIPERACILLIN/TAZ 3.375G PREMIX 50 ML IV NR (23:00)
[2020-03-25] MEDS ORDERED: PIPERACILLIN/TAZOBACTAM 3.375GM/50ML PREMIX IV ONE (23:00)
[2020-03-26] MEDS ORDERED: VANCOMYCIN 1250MG in DEXTROSE 5% WATER 250ML IV SCH (00:30)
[2020-03-26] MEDS: NOREPINEPHRINE 4MG/250ML PMX 250 ML IV PRN ×3 (01:56→19:40)
[2020-03-26] MEDS ORDERED: NOREPINEPHRINE 4MG/250ML PMX 250 ML IV SCH (02:00)
[2020-03-26] MEDS: CEFEPIME 1,000 MG in DEXTROSE 5% WATER 50 ML IV SCH ×2 (09:00→22:45)
[2020-03-26] MEDS ORDERED: DEXTROSE 5% WATER 1,000 ML IV SCH (09:00)
[2020-03-26] MEDS: MIDODRINE HCL 5MG TABLET PO SCH ×3 (09:00→17:00)
[2020-03-26] MEDS ORDERED: FUROSEMIDE 20MG/2ML VIAL IVP SCH (11:45)
[2020-03-26] MEDS ORDERED: DEXTROSE 50% WATER 50ML SYRINGE IV ONE ×2 (12:45→16:03)
[2020-03-26] MEDS: FLUDROCORTISONE ACETATE 0.1MG TABLET PO SCH (13:52)
[2020-03-26] MEDS: DEXT 10% WATER 1,000 ML IV SCH (14:49)
[2020-03-26] MEDS: DEXTROSE 50% WATER 50ML SYRINGE IV PRN (23:58)
[2020-03-27] MEDS ORDERED: VANCOMYCIN 1 G PREMIX 200 ML IV SCH (01:00)
[2020-03-27] MEDS: DEXT 10% WATER 1,000 ML IV SCH (04:24)
[2020-03-27 05:01] LABS: MEAN CORPUSCULAR HEMOGLOBIN 28.4 pg (28.0-32.0); MEAN CORPUSCULAR VOLUME 85.9 fL (81.0-99.0); MEAN PLATELET VOLUME 9.9 fl (7.4-10.4); RED BLOOD CELL COUNT 2.39 mill/uL (4.2-5.4)
[2020-03-27 05:14] LABS: HEMATOCRIT. 20.5 % (36.0-48.0); HEMOGLOBIN. 6.8 g/dL (12.0-16.0)
[2020-03-27 08:27] LABS: NUCLEATED RED BLOOD CELLS 24 /100 WBC; PLATELET ESTIMATE MARKEDLY DECREASED
[2020-03-27 08:28] LABS: PLATELET 25 x1000/uL (130-400)
[2020-03-27] MEDS: MIDODRINE HCL 5MG TABLET PO SCH ×3 (10:00→18:49)
[2020-03-27] MEDS: FLUDROCORTISONE ACETATE 0.1MG TABLET PO SCH (10:12)
[2020-03-27] MEDS: DEXT 5%/0.45% NACL 1000ML 1,000 ML IV SCH ×2 (10:14→22:00)
[2020-03-27 14:46] LABS: BG BASE EXCESS -11.7 mmol/L (-2.0-2.0); BG CARBOXYHEMOGLOBIN 0.3 % (0.5-1.5); BG DEOXYHEMOGLOBIN 1.3 % (0.0-5.0); BG FRACTION INSPIRED OXYGEN 28; BG HCO3 ACT 13.2 mmol/L (22.0-26.0); BG METHEMOGLOBIN 0.1 % (0.0-1.5); BG OXYGEN SATURATION 98.7 % (92.0-98.5); BG OXYHEMOGLOBIN 98.3 % (94.0-97.0); BG PCO2 27.1 mmHg (35.0-45.0); BG PH 7.306 (7.350-7.450); BG PO2 148.3 mmHg (75.0-100.0); BG SAMPLE SITE LEFT BRACHIAL; BG TOTAL HEMOGLOBIN 9.9 g/dL (12.0-18.0); BG VENT MODE NASAL CANNULA
[2020-03-27 17:07] LABS: HEMATOCRIT 26.4 % (36.0-48.0); HEMOGLOBIN 8.3 g/dL (12.0-16.0); MEAN CORPUSCULAR HEMOGLOBIN 29.2 pg (28.0-32.0); RED BLOOD CELL COUNT 2.84 mill/uL (4.2-5.4); RED CELL DISTRIBUTION WIDTH 18.8 % (11.6-14.6)
[2020-03-27 17:13] LABS: PLATELET 15 x1000/uL (130-400)
[2020-03-27 17:22] LABS: INR 1.2; PROTHROMBIN TIME 12.9 sec (9.6-11.0)
[2020-03-27] MEDS: CEFEPIME 1,000 MG in DEXTROSE 5% WATER 50 ML IV SCH (22:43)
[2020-03-28] MEDS: PANTOPRAZOLE SODIUM 40 MG/VIAL IV SCH ×2 (03:00→13:00)
[2020-03-28 05:33] LABS: HEMATOCRIT. 24.6 % (36.0-48.0); HEMOGLOBIN. 8.6 g/dL (12.0-16.0); MEAN CORPUSCULAR HEMOGLOBIN 29.9 pg (28.0-32.0); MEAN PLATELET VOLUME 9.2 fl (7.4-10.4); RED BLOOD CELL COUNT 2.87 mill/uL (4.2-5.4); RED CELL DISTRIBUTION WIDTH 18.1 % (11.6-14.6)
[2020-03-28] MEDS: DEXT 5%/0.45% NACL 1000ML 1,000 ML IV SCH (06:00)
[2020-03-28 06:59] LABS: PLATELET 20 x1000/uL (130-400)
[2020-03-28 08:05] LABS: BG CARBOXYHEMOGLOBIN 0.3 % (0.5-1.5); BG DEOXYHEMOGLOBIN 1.4 % (0.0-5.0); BG FRACTION INSPIRED OXYGEN 28; BG HCO3 ACT 9.9 mmol/L (22.0-26.0); BG METHEMOGLOBIN 0.2 % (0.0-1.5); BG OXYGEN SATURATION 98.6 % (92.0-98.5); BG OXYHEMOGLOBIN 98.1 % (94.0-97.0); BG PCO2 18.4 mmHg (35.0-45.0); BG PH 7.348 (7.350-7.450); BG SAMPLE SITE LEFT BRACHIAL; BG TOTAL HEMOGLOBIN 8.6 g/dL (12.0-18.0); BG VENT MODE NASAL CANNULA
[2020-03-28] MEDS: MIDODRINE HCL 5MG TABLET PO SCH (08:50)
[2020-03-28] MEDS: FLUDROCORTISONE ACETATE 0.1MG TABLET PO SCH (08:50)
[2020-03-28] MEDS: DEXTROSE 50% WATER 50ML SYRINGE IV PRN (08:54)
[2020-03-28 10:55] LABS: NUCLEATED RED BLOOD CELLS 8 /100 WBC
[2020-03-28 10:56] LABS: PLATELET ESTIMATE MARKEDLY DECREASED
[2020-03-28] MEDS: SODIUM BICARBONATE 150 MEQ in DEXTROSE 5% WATER 1,000 ML IV SCH (17:30)
[2020-03-28] MEDS ORDERED: MICAFUNGIN 100 MG in SODIUM CHLORIDE 0.9% 100 ML IV SCH (22:00)
[2020-03-28] MEDS: CEFEPIME 1,000 MG in DEXTROSE 5% WATER 50 ML IV SCH (23:32)
[2020-03-29] VITALS (46 sets, daily range): BP systolic 58–147; BP diastolic 26–76
[2020-03-29] MEDS: PANTOPRAZOLE SODIUM 40 MG/VIAL IV SCH (03:00)
[2020-03-29 06:00] LABS: HEMOGLOBIN. 8.1 g/dL (12.0-16.0); MEAN PLATELET VOLUME 9.2 fl (7.4-10.4); RED BLOOD CELL COUNT 2.69 mill/uL (4.2-5.4)
[2020-03-29] MEDS ORDERED: VANCOMYCIN 1 G PREMIX 200 ML IV SCH (06:00)
[2020-03-29 06:46] LABS: HEMATOCRIT. 23.6 % (36.0-48.0); MEAN CORPUSCULAR VOLUME 87.5 fL (81.0-99.0); RED CELL DISTRIBUTION WIDTH 18.4 % (11.6-14.6)
[2020-03-29 07:33] LABS: PLATELET 15 x1000/uL (130-400)
[2020-03-29 12:01] LABS: NUCLEATED RED BLOOD CELLS 1 /100 WBC; PLATELET ESTIMATE MARKEDLY DECREASED
[2020-03-29] MEDS ORDERED: NOREPINEPHRINE 16 MG in DEXT 5% WATER 234 ML IV PRN (12:15)
[2020-03-29] MEDS: SODIUM BICARBONATE 150 MEQ in DEXTROSE 5% WATER 1,000 ML IV SCH (14:02)
[2020-03-29] MEDS ORDERED: MORPHINE SULFATE 2 MG/ML CPJ (NOT FOR IM USE) IV PRN (14:45)
[2020-03-29] MEDS ORDERED: LORAZEPAM 2MG/ML CPJ IV PRN (14:45)
[2020-03-29] MEDS ORDERED: MORPHINE SULFATE 2 MG/ML CPJ (NOT FOR IM USE) IV ONE (14:45)
[2020-03-29] MEDS ORDERED: LORAZEPAM 2MG/ML CPJ IV ONE (14:45)
[2020-03-29] MEDS: MORPHINE SULFATE 100 MG in DEXT 5% WATER 90 ML IV PRN (20:32)
[2020-03-30] VITALS (9 sets, daily range): BP systolic 49–92; BP diastolic 25–67
[2020-03-30] MEDS: MORPHINE SULFATE 100 MG in DEXT 5% WATER 90 ML IV PRN (02:03)
== END 2020-03-30 02:15 | disposition expired | DRG 871 ==
LOC: ER 20:24 → MICUSO 23:05 → EDBEDREQSVC 23:28 → MICUSO 03-29 12:11
PROVIDERS: ADMIT Internal Medicine; ATTEND Internal Medicine
PROC: 05HY33Z Insertion of Infusion Device into Upper Vein, Percutaneous Approach (ICD-10-PCS; principal; 2020-03-26)
PROC: 30233N1 Transfusion of Nonautologous Red Blood Cells into Peripheral Vein, Percutaneous Approach (ICD-10-PCS; 2020-03-27)
DX: A41.89 Other specified sepsis (principal); U07.1 COVID-19; J12.89 Other viral pneumonia; E43 Unspecified severe protein-calorie malnutrition; J96.01 Acute respiratory failure with hypoxia; R65.21 Severe sepsis with septic shock; I21.A1 Myocardial infarction type 2; N17.0 Acute kidney failure with tubular necrosis; G92 Toxic encephalopathy; I50.32 Chronic diastolic (congestive) heart failure; N39.0 Urinary tract infection, site not specified; D61.818 Other pancytopenia; E87.0 Hyperosmolality and hypernatremia; B97.89 Other viral agents as the cause of diseases classified elsewhere; E78.5 Hyperlipidemia, unspecified; E86.0 Dehydration; G20 Parkinson's disease; F03.90 Unspecified dementia, unspecified severity, without behavioral disturbance, psychotic disturbance, mood disturbance, and anxiety; I48.0 Paroxysmal atrial fibrillation; G40.909 Epilepsy, unspecified, not intractable, without status epilepticus; Z66 Do not resuscitate; E87.8 Other disorders of electrolyte and fluid balance, not elsewhere classified; I11.0 Hypertensive heart disease with heart failure; E11.649 Type 2 diabetes mellitus with hypoglycemia without coma; R74.0 Nonspecific elevation of levels of transaminase and lactic acid dehydrogenase [LDH]; Z79.4 Long term (current) use of insulin; Z79.899 Other long term (current) drug therapy; Z68.27 Body mass index [BMI] 27.0-27.9, adult
CPT/HCPCS: 36415; 36600; 71045; 76937; 80048; 80053; 80202; 81003; 82375; 82805; 82962; 83605; 84145; 84484; 85014; 85018; 85025; 85027; 85384; 86850; 86900; 86920; 87106; 93005; 96365; 99285; C1725; C9113; J0692; J1940; J2060; J2248; J2270; J2543; J3370; J3490; J7040; J7050; J7060; J7070; P9016